=== PATIENT | male | born 2000 | race Caucasian/White ===

== ENCOUNTER 2021-02-24 16:33 | Emergency (ER) | payer SELFPAY ==
[~2021-02-24] VITALS: Ht 170.2 cm; Wt 73.0 kg
[2021-02-24] MEDS ORDERED: MORPHINE SULFATE 4 MG/ML CPJ (NOT FOR IM USE) IV NR (18:02)
[2021-02-24] MEDS ORDERED: LORAZEPAM 2MG/ML CPJ IV ONE (19:30)
[2021-02-24] MEDS ORDERED: FENTANYL CITRATE/PF 50MCG/ML 2ML VIAL IV ONE (20:45)
[2021-02-24] MEDS ORDERED: ONDANSETRON HCL 4MG/2ML INJ IV ONE (22:15)
[2021-02-25 00:35] VITALS: BP 125/74
== END 2021-02-25 00:50 | disposition home or self-care (01) ==
LOC: ER 16:33
DX: S43.084A Other dislocation of right shoulder joint, initial encounter (principal); Y04.0XXA Assault by unarmed brawl or fight, initial encounter; Y93.89 Activity, other specified; Y92.89 Other specified places as the place of occurrence of the external cause; Y99.8 Other external cause status
CPT/HCPCS: 23650; 73030; 96374; 96375; 99284; J2060; J2270; J2405; J3010; A4565

== ENCOUNTER 2021-03-02 04:38 | Emergency (ER) | payer MEDICAID ==
[~2021-03-02] VITALS: Ht 170.2 cm; Wt 73.0 kg
[2021-03-02 05:11] VITALS: BP 127/84
[2021-03-02] MEDS ORDERED: KETOROLAC 60MG/2ML VIAL IM ONE (05:15)
== END 2021-03-02 06:44 | disposition home or self-care (01) ==
LOC: ER 04:38
DX: S43.084A Other dislocation of right shoulder joint, initial encounter (principal); W22.8XXA Striking against or struck by other objects, initial encounter; Y93.89 Activity, other specified; Y92.89 Other specified places as the place of occurrence of the external cause; Y99.8 Other external cause status
CPT/HCPCS: 23650; 73030; 96372; 99284; J1885